=== PATIENT | female | born 1980 | race Caucasian/White ===

== ENCOUNTER 2017-10-09 12:36 | Day surgery (SDC) | payer OTHER ==
[2017-10-09] MEDS ORDERED: LR 1,000 ML IV ONE (12:54)
[2017-10-09] MEDS ORDERED: LIDOCAINE 1% 2 ML INJ ID PRN (12:54)
[2017-10-09] MEDS ORDERED: DEXAMETHASONE 4 MG/ML VIAL IVP PRN (14:38)
[2017-10-09] MEDS ORDERED: LR 500 ML IV PRN (14:38)
[2017-10-09] MEDS ORDERED: NALOXONE HCL 0.4 MG/ML INJ IVP PRN (14:38)
[2017-10-09] MEDS ORDERED: PROMETHAZINE HCL 25 MG/ML INJ IVP PRN (14:38)
[2017-10-09] MEDS ORDERED: fentaNYL 100 MCG/2 ML INJ IVP PRN (14:38)
[2017-10-09] MEDS ORDERED: ONDANSETRON 4 MG/2 ML VIAL IVP PRN (14:38)
--- NOTE | 2017-10-09 14:38 | PDANEPAE ---
ANE Past Medical History - Cardiovascular History Hx Hypertension: No Hx Arrhythmias: No Hx Chest Pain: No Hx Coronary Artery / Peripheral Vascular Disease: No Hx CHF / Valvular Disease: No Hx Palpitations: No - Pulmonary History Hx COPD: No Hx Asthma/Reactive Airway Disease: No Hx Recent Upper Respiratory Infection: No Hx Oxygen in Use at Home: No Hx Sleep Apnea: No Sleep Apnea Screening Result - Last Documented: Negative - Neurologic History Hx Cerebrovascular Accident: No Hx Seizures: No Hx Dementia: No - Endocrine History Hx Diabetes: No - Renal History Hx Renal Disorders: No - Liver History Hx Hepatic Disorders: No - Neurological & Psychiatric Hx Hx Neurological and Psychiatric Disorders: No - Cancer History Hx Cancer: No - Congenital Disorder History Hx Congenital Disorders: No - GI History Hx Gastrointestinal Disorders: Yes Gastrointestinal History Comment: RT UPPER QUADRANT DISCOMFORT SINCE 2015 INTERMITTENT NAUSEA - Other Health History Other Health History: LOW IRON - Chronic Pain History Chronic Pain: Yes (RUQ) - Surgical History Prior Surgeries: LILO 07/2016. COLONOSCOPY/EGD ANE Review of Systems Review of Systems: - Exercise capacity METS (RN): 5 METS ANE Patient History - Allergies Allergies/Adverse Reactions: No Known Allergies Allergy (Unverified 10/03/17 16:02) - Home Medications Home Medications: Amitriptyline HCl HS 10/03/17 [Last Taken 09/25/17] Hyoscyamine Sulfate PRN 10/03/17 [Last Taken 09/25/17] Iron DAILY 10/03/17 [Last Taken 10/02/17] - NPO status NPO Status: no food or drink >8 hours NPO Since - Liquids (Date): 10/08/17 NPO Since - Liquids (Time): 22:30 NPO Since - Solids (Date): 10/08/17 NPO Since - Solids (Time): 22:30 - Anes Hx Anes Hx: no prior problems - Smoking Hx Smoking Status: Never smoked ANE Labs/Vital Signs - Vital Signs Blood Pressure: 139/95 Heart Rate: 98 Respiratory Rate: 11 O2 Sat (%): 94 Height: 162.56 cm Weight: 108.862 kg ANE Physical Exam - Airway Neck exam: FROM Mallampati Score: Class 2 Mouth exam: normal dental/mouth exam - Pulmonary Pulmonary: no respiratory distress, no rales or rhonchi, clear to auscultation - Cardiovascular Cardiovascular: regular rate and rhythym, no murmur, rub, or gallop - ASA Status ASA Status: II ANE Anesthesia Plan Anesthesia Plan: GA with mask
[2017-10-09] MEDS ORDERED: INDOMETHACIN 50 MG SUPP PR PRN (14:47)
--- NOTE | 2017-10-09 14:47 | PDGENHP ---
History & Physical Chief Complaint: ruq abdominal pain History of Present Illness: 37 year old female presents for evaluation of ruq abdominal pain, nausea. S/p CCY Pertinent Past, Social, Family History: PSurgHx: CCY. Med: Kidney stones Relevant Physical Exam: HEENT: anicteric. CV: RRR +s1s2. Lungs: CTAB. Abd: soft, nt, + BS Cardiorespiratory Assessment: ASA 2
[2017-10-09] MEDS ORDERED: PROPOFOL/EMULSION 500 MG/50 ML BOTTLE IV ONE (14:54)
[2017-10-09] MEDS ORDERED: NS 500 ML IV SCH (15:00)
--- NOTE | 2017-10-09 15:25 | POSTANESTH ---
Post Anesthetic Evaluation Cardiovascular Status: Similar to Pre-Op Cond Respiratory Status: Normal, Stable, Similar to Pre-op Cond. Level of Consciousness/Mental Status: Can Participate in Eval, Moderately Sleepy Pain Control: Adequate, Prn Tx Ordered Nausea/Vomiting Control: Adequate, Prn Tx Ordered Complications Possibly Related to Anesthesia: None Noted
--- NOTE | 2017-10-09 15:44 | GIREPORT ---
[facility] Surgical Services - Endoscopy Department Patient Name: Luciana Lara Procedure Date: 10/09/2017 2:45 PM Patient Type: Outpatient Attending MD/ ER Physician: Anjum Smalls MD Procedure: Upper EUS Indications: Common bile duct dilation (acquired) seen on CT scan, Abdominal pain in the right upper quadrant Patient Profile: 37 year old female with a history of CCY presents for evaluation of RUQ abdominal pain, nausea, and iron deficiency anemia. Providers: Anjum Smalls MD Medicines: Monitored Anesthesia Care Complications: No immediate complications. Estimated blood loss: Minimal. Description of Procedure: After obtaining informed consent, the endoscope was passed under direct vision. Throughout the procedure, the patient's blood pressure, pulse, and oxygen saturations were monitored continuously. The Endoscope was intro duced through the mouth, and advanced to the second part of duodenum. The Endosonoscope was introduced through the mouth, and advanced to the sec ond part of duodenum. The upper EUS was accomplished without difficulty. Th e esophagus, stomach, and duodenum were visualized endosonographically. T he patient tolerated the procedure well. Findings: Endoscopic Finding : The examined esophagus was normal. A hiatal hernia was present. Patchy mildly erythematous mucosa was found in the gastric body and in the gastric antrum. Biopsies were taken with a cold forceps for histology. Multiple diminutive sessile polyps were found in the stomach. A single diminutive sessile polyp was found in the second portion of th e duodenum. Biopsies were taken with a cold forceps for histology. Biopsies for histology were taken with a cold forceps for evaluation of celiac disease. Endosonographic Finding : Pancreatic parenchymal abnormalities were noted in the entire pancreas. These consisted of hyperechoic foci. The pancreatic duct had a prominently branched endosonographic appearan ce and had hyperechoic mccracken in the entire pancreas. There was no sign of significant endosonographic abnormality in the com mon bile duct. There was no sign of significant endosonographic abnormality in the visualized portion of the liver. No masses were identified. No lymphadenopathy seen. Estimated Blood Loss: Estimated blood loss was minimal. Post Op Diagnosis: - Normal esophagus. - Hiatal hernia. - Erythematous mucosa in the gastric body and antrum. Biopsied. - Multiple gastric polyps. - A single duodenal polyp. Biopsied. - Pancreatic parenchymal abnormalities consisting of hyperechoic foci w ere noted in the entire pancreas. - The pancreatic duct had a prominently branched endosonographic appear ance and had hyperechoic mccracken in the entire pancreas. - There was no sign of significant pathology in the common bile duct. - There was no evidence of significant pathology in the visualized port ion of the liver. - Biopsies were taken with a cold forceps for evaluation of celiac dise ase. - Etiology? No obvious cause of symptoms seen. Will await biopsy result s. Recommendation: - Discharge patient to home (with escort). - Continue present medications. - Await pathology results. - Return to GI office in 6 weeks. - Thank you for allowing me to participate in the care of your patient. Attending Participation: I personally performed the entire procedure. Anjum Smalls MD Anjum Smalls MD 10/09/2017 3:44:11 PM This report has been signed electronicallyAnjum Smalls MD Number of Addenda: 0 Note Initiated On: 10/09/2017 2:45 PM [email or web address]
[2017-10-09 16:09] VITALS: BP 139/81
== END 2017-10-09 16:05 | disposition home or self-care (01) ==
LOC: FSGY 12:36
PROVIDERS: ATTEND Internal Medicine Gastroenterology
DX: K31.7 Polyp of stomach and duodenum (principal); K29.50 Unspecified chronic gastritis without bleeding; K44.9 Diaphragmatic hernia without obstruction or gangrene; D50.9 Iron deficiency anemia, unspecified
CPT/HCPCS: J2704